=== PATIENT | female | born 1980 | race Caucasian/White ===

== ENCOUNTER 2017-11-07 13:21 | Inpatient (IN) | payer MEDICAID ==
[2017-11-07 14:25] LABS: WHITE BLOOD COUNT 8.6 10^3/ul (4.8-10.8)
[2017-11-07 14:25] LABS: ABNORMAL IP MESSAGE 1; HEMATOCRIT 22.2 % (37.0-47.0); MEAN CORPUSCULAR HEMOGLOBIN 16.9 pg (29.0-33.0); MEAN CORPUSCULAR HGB CONC 27.5 g/dl (32.0-37.0); MEAN CORPUSCULAR VOLUME 61.7 fl (82.0-101.0); PLATELET COUNT 367 10^3/UL (140-415); RED CELL DISTRIBUTION WIDTH 20.1 % (11.5-14.5)
[2017-11-07 14:33] LABS: HEMOGLOBIN 6.1 g/dl (12.0-16.0); POSITIVE DIFF @See below
[2017-11-07 14:34] LABS: ADD MAN DIFF? YES
[2017-11-07 14:41] LABS: INR 1.17; PROTIME 15.1 Sec (11.9-14.9); PT RATIO 1.2
[2017-11-07] MEDS: SOD CHLORIDE 0.9% 250 ML IV (14:41)
[2017-11-07 14:42] LABS: ANION GAP 18 (8-16); BLOOD UREA NITROGEN 10 mg/dl (7-20); CALCIUM 9.8 mg/dl (8.4-10.2); CARBON DIOXIDE 26 mmol/L (21-31); CHLORIDE 102 mmol/L (97-110); CREATININE 0.47 mg/dl (0.44-1.00); GLUCOSE 100 mg/dl (70-220); PARTIAL THROMBOPLASTIN TIME 26.9 Sec (25.0-35.0); SODIUM 142 mmol/L (135-144)
[2017-11-07] MEDS ORDERED: ONDANSETRON 4 MG INJ IV ×2 (15:00→15:30)
[2017-11-07] MEDS ORDERED: ACETAMINOPHEN 325 MG TAB PO (15:00)
[2017-11-07] MEDS ORDERED: HYDROCODONE/APAP (5/325) TAB PO (15:30)
[2017-11-07] MEDS ORDERED: morphine 2 MG INJ IV (15:30)
[2017-11-07] MEDS ORDERED: ONDANSETRON 4 MG TAB PO (15:30)
[2017-11-07] MEDS ORDERED: NACL 0.9% 3 ML SYG IV (15:30)
[2017-11-07] MEDS ORDERED: OXYCODONE/ACETAMINOPHEN (5/325) TAB PO (15:30)
[2017-11-07 16:22] LABS: ANISOCYTOSIS 2+ (0-0); BAND NEUTROPHILS % (M) 1 % (0-4); BASOPHILS % (M) 1 % (0-2); EOSINOPHILS % (M) 1 % (0-7); GIANT THROMBO% (M) 17 % (0-0); HYPOCHROMASIA 3+ (0-0); LYMPHOCYTES #M 2.9 10^3/ul (0.8-2.9); LYMPHOCYTES % (M) 34 % (15-51); MICROCYTOSIS 2+ (0-0); MONOCYTE #M 0.2 10^3/ul (0.3-0.9); MONOCYTES % (M) 3 % (0-11); PLASMAC%(M) 1 % (0); PLATELET ESTIMATE NORMAL; POIKILOCYTOSIS 1+ (0-0); POLYCHROMASIA 3+ (0-0); SEG NEUT #M 5.1 10^3/ul (1.6-7.5); SEGMENTED NEUTROPHILS (M) % 59 % (39-77); SMUDGE%M 3 % (0-0)
[2017-11-07 16:35] LABS: RETICULOCYTE COUNT # 0.038 X10^6 (0.020-0.110); RETICULOCYTE COUNT % 1.1 % (0.5-1.5)
[2017-11-07 16:35] LABS: RETICULOCYTE RBC 3.57
[2017-11-07 16:40] LABS: IRON 24 ug/dl (35-150)
[2017-11-07 16:49] LABS: % IRON SATURATION 5 % SAT (22-52); TOTAL IRON BINDING CAPACITY 462 ug/dl (241-421)
[2017-11-07 17:18] LABS: THYROID STIMULATING HORMONE 0.599 MIU/L (0.465-4.680)
[2017-11-07 20:06] LABS: ALANINE AMINOTRANSFERASE 28 IU/L (13-69); ALBUMIN 4.9 g/dl (3.3-4.9); ALKALINE PHOSPHATASE 82 IU/L (42-121); ASPARTATE AMINO TRANSFERASE 27 IU/L (15-46); LACTATE DEHYDROGENASE 491 IU/L (313-618); TOTAL PROTEIN 9.1 g/dl (6.1-8.1)
[2017-11-07] MEDS: FERROUS SULFATE (EC) 325 MG TAB PO (20:17)
[2017-11-07 20:32] LABS: IMMEDIATE SPIN CROSSMATCH 1 2
[2017-11-07 20:42] LABS: FERRITIN 2.8 ng/ml (6.2-137.0)
[2017-11-07 21:12] LABS: FOLATE 13.8 ng/ml (2.8-20.0)
[2017-11-08 06:10] LABS: ADD MAN DIFF? NO
[2017-11-08 06:17] LABS: WHITE BLOOD COUNT 6.5 10^3/ul (4.8-10.8)
[2017-11-08 06:17] LABS: ABNORMAL IP MESSAGE 1; BASOPHIL # 0.1 10^3/ul (0.0-0.1); BASOPHILS % 1.1 % (0.0-2.0); EOSINOPHILS # 0.2 10^3/ul (0.0-0.5); EOSINOPHILS % 2.5 % (0.0-7.0); HEMOGLOBIN 8.5 g/dl (12.0-16.0); LYMPHOCYTES # 2.6 10^3/ul (0.8-2.9); LYMPHOCYTES % 40.6 % (15.0-51.0); MEAN CORPUSCULAR HEMOGLOBIN 20.5 pg (29.0-33.0); MEAN CORPUSCULAR HGB CONC 30.4 g/dl (32.0-37.0); MEAN CORPUSCULAR VOLUME 67.6 fl (82.0-101.0); MONOCYTE # 0.6 10^3/ul (0.3-0.9); MONOCYTES % 9.1 % (0.0-11.0); NEUTROPHILS % 46.5 % (39.0-77.0); PLATELET COUNT 296 10^3/UL (140-415); RED BLOOD COUNT 4.14 10^6/ul (4.20-5.40); RED CELL DISTRIBUTION WIDTH 26.2 % (11.5-14.5)
[2017-11-08 06:18] LABS: POSITIVE DIFF @See below
[2017-11-08] MEDS: FERROUS SULFATE (EC) 325 MG TAB PO ×3 (08:44→20:33)
[2017-11-08] MEDS: ACETAMINOPHEN 325 MG TAB PO (08:54)
[2017-11-08] MEDS: SOD FERRIC GLUC COMPLX 125 MG in SOD CHLORIDE 0.9% 100 ML IVPB (18:01)
[2017-11-09] MEDS: SODIUM CHLORIDE 0.9% 1L BAG IUPC
[2017-11-09 04:12] LABS: OCCULT BLOOD STOOL NEGATIVE (NEGATIVE)
[2017-11-09] MEDS: FERROUS SULFATE (EC) 325 MG TAB PO ×3 (08:57→21:47)
[2017-11-09 14:38] LABS: HAPTOGLOBIN 157 mg/dL (43-212)
[2017-11-09] MEDS ORDERED: MIDAZOLAM 1 MG/ML 2 ML INJ (15:08)
[2017-11-09] MEDS ORDERED: FENTAnyl 50 MCG/ML VIAL (15:08)
[2017-11-09] MEDS ORDERED: CEFAZOLIN 1 GM INJ (15:47)
[2017-11-09] MEDS ORDERED: PROPOFOL 20 ML (15:47)
[2017-11-09] MEDS ORDERED: LIDOCAINE 2% (SDV) 5 ML INJ (15:47)
[2017-11-09] MEDS ORDERED: ONDANSETRON 4 MG INJ (15:48)
[2017-11-09] MEDS ORDERED: FENTAnyl 50 MCG/ML VIAL IV (16:30)
[2017-11-09] MEDS ORDERED: DIPHENHYDRAMINE 50 MG INJ IV (16:30)
[2017-11-09] MEDS ORDERED: HYDROmorphONE (0.2 MG/ML) 10ML SYG IV ×2 (16:30)
[2017-11-09] MEDS ORDERED: ONDANSETRON 4 MG INJ IV (16:30)
[2017-11-09] MEDS ORDERED: MEPERIDINE 25 MG INJ IV (16:30)
[2017-11-09] MEDS: SOD FERRIC GLUC COMPLX 125 MG in SOD CHLORIDE 0.9% 100 ML IVPB (17:10)
[2017-11-10 06:32] LABS: ADD MAN DIFF? NO
[2017-11-10 06:46] LABS: ABNORMAL IP MESSAGE 1; BASOPHIL # 0.1 10^3/ul (0.0-0.1); BASOPHILS % 0.9 % (0.0-2.0); EOSINOPHILS # 0.3 10^3/ul (0.0-0.5); EOSINOPHILS % 3.6 % (0.0-7.0); HEMATOCRIT 28.9 % (37.0-47.0); HEMOGLOBIN 8.5 g/dl (12.0-16.0); LYMPHOCYTES % 31.6 % (15.0-51.0); MEAN CORPUSCULAR HEMOGLOBIN 20.3 pg (29.0-33.0); MEAN CORPUSCULAR HGB CONC 29.4 g/dl (32.0-37.0); MEAN CORPUSCULAR VOLUME 69.1 fl (82.0-101.0); MONOCYTE # 0.8 10^3/ul (0.3-0.9); MONOCYTES % 8.3 % (0.0-11.0); NEUTROPHIL # 5.2 10^3/ul (1.6-7.5); NEUTROPHILS % 55.4 % (39.0-77.0); PLATELET COUNT 318 10^3/UL (140-415); RED BLOOD COUNT 4.18 10^6/ul (4.20-5.40); RED CELL DISTRIBUTION WIDTH 27.8 % (11.5-14.5)
[2017-11-10 06:46] LABS: WHITE BLOOD COUNT 9.4 10^3/ul (4.8-10.8)
[2017-11-10 06:49] LABS: POSITIVE DIFF @See below
[2017-11-10] MEDS: FERROUS SULFATE (EC) 325 MG TAB PO ×3 (08:46→20:19)
[2017-11-10] MEDS: SOD FERRIC GLUC COMPLX 125 MG in SOD CHLORIDE 0.9% 100 ML IVPB (17:18)
== END 2017-11-10 22:35 | disposition home or self-care (01) | DRG 744 ==
LOC: E/R 13:21 → PP2 15:00
PROC: 30233N1 Transfusion of Nonautologous Red Blood Cells into Peripheral Vein, Percutaneous Approach (ICD-10-PCS; principal; 2017-11-09 15:10)
PROC: 0UDB8ZX Extraction of Endometrium, Via Natural or Artificial Opening Endoscopic, Diagnostic (ICD-10-PCS; 2017-11-09 15:10)
PROC: 0UB98ZX Excision of Uterus, Via Natural or Artificial Opening Endoscopic, Diagnostic (ICD-10-PCS; 2017-11-09 15:10)
DX: N84.0 Polyp of corpus uteri (principal); D62 Acute posthemorrhagic anemia; N93.8 Other specified abnormal uterine and vaginal bleeding; R63.4 Abnormal weight loss; Z68.21 Body mass index [BMI] 21.0-21.9, adult; R93.8 Abnormal findings on diagnostic imaging of other specified body structures
CPT/HCPCS: 36415; 36430; 76830; 76856; 80048; 80076; 82270; 82607; 82728; 82746; 83010; 83540; 83615; 84443; 85025; 85045; 85610; 85730; 86644; 86850; 86900; 86901; 86920; 88305; 99291-25

== ENCOUNTER 2018-01-19 17:32 | Emergency (ER) | payer MEDICAID ==
[2018-01-19 19:02] LABS: ADD MAN DIFF? NO
[2018-01-19 19:06] LABS: ABNORMAL IP MESSAGE 1; BASOPHIL # 0.1 10^3/ul (0.0-0.1); EOSINOPHILS # 0.7 10^3/ul (0.0-0.5); HEMOGLOBIN 12.8 g/dl (12.0-16.0); LYMPHOCYTES # 3.4 10^3/ul (0.8-2.9); LYMPHOCYTES % 35.8 % (15.0-51.0); MEAN CORPUSCULAR HGB CONC 32.1 g/dl (32.0-37.0); MONOCYTE # 0.7 10^3/ul (0.3-0.9); MONOCYTES % 7.2 % (0.0-11.0); NEUTROPHIL # 4.6 10^3/ul (1.6-7.5); NEUTROPHILS % 48.8 % (39.0-77.0); PLATELET COUNT 198 10^3/UL (140-415); RED BLOOD COUNT 4.24 10^6/ul (4.20-5.40)
[2018-01-19 19:06] LABS: WHITE BLOOD COUNT 9.4 10^3/ul (4.8-10.8)
[2018-01-19 19:07] LABS: HEMATOCRIT 39.9 % (37.0-47.0); MEAN CORPUSCULAR VOLUME 94.1 fl (82.0-101.0)
[2018-01-19 19:08] LABS: MEAN CORPUSCULAR HEMOGLOBIN 30.2 pg (29.0-33.0); POSITIVE DIFF @See below
[2018-01-19 19:20] LABS: ADD UMIC YES; UR ASCORBIC ACID NEGATIVE (NEGATIVE); UR BACTERIA FEW /HPF (NONE SEEN); UR BILIRUBIN (Dip) NEGATIVE (NEGATIVE); UR BLOOD (Dip) NEGATIVE (NEGATIVE); UR CLARITY SLIGHTLY CLOUDY (CLEAR); UR COLOR YELLOW (YELLOW); UR GLUCOSE (Dip) NEGATIVE (NEGATIVE); UR KETONES (Dip) NEGATIVE (NEGATIVE); UR LEUKOCYTE ESTERASE (Dip) 3+ Leu/ul (NEGATIVE); UR NITRITE (Dip) NEGATIVE (NEGATIVE); UR RBC 1 /HPF (0-5); UR SPECIFIC GRAVITY (Dip) 1.018 (1.003-1.030); UR SQUAMOUS EPITHELIAL CELL FEW /HPF (FEW); UR TOTAL PROTEIN (Dip) NEGATIVE (NEGATIVE); UR UROBILINOGEN (Dip) NEGATIVE (NEGATIVE); UR WBC 2 /HPF (0-5)
[2018-01-19 19:42] LABS: ALANINE AMINOTRANSFERASE 17 IU/L (13-69); ALBUMIN 4.4 g/dl (3.3-4.9); ALBUMIN/GLOBULIN RATIO 0.97; ALKALINE PHOSPHATASE 102 IU/L (42-121); ANION GAP 16 (8-16); ASPARTATE AMINO TRANSFERASE 21 IU/L (15-46); BILIRUBIN,INDIRECT 0.3 mg/dl (0-1.1); BILIRUBIN,TOTAL 0.3 mg/dl (0.2-1.3); BLOOD UREA NITROGEN 14 mg/dl (7-20); CALCIUM 9.6 mg/dl (8.4-10.2); CARBON DIOXIDE 26 mmol/L (21-31); CHLORIDE 104 mmol/L (97-110); CREATININE 0.61 mg/dl (0.44-1.00); GLUCOSE 101 mg/dl (70-220); POTASSIUM 4.3 mmol/L (3.5-5.1); SODIUM 142 mmol/L (135-144); TOTAL PROTEIN 8.9 g/dl (6.1-8.1)
== END 2018-01-19 20:14 | disposition home or self-care (01) ==
LOC: FTE 17:32
DX: R51 Headache (principal); N30.00 Acute cystitis without hematuria
CPT/HCPCS: 70450; 80053; 81001; 81025; 85025; 99284-25

== ENCOUNTER 2018-11-21 17:37 | Emergency (ER) | payer OTHER, MEDICAID ==
[2018-11-21 19:39] LABS: ADD MAN DIFF? NO
[2018-11-21 19:44] LABS: WHITE BLOOD COUNT 12.7 10^3/ul (4.8-10.8)
[2018-11-21 19:44] LABS: ABNORMAL IP MESSAGE 1; BASOPHIL # 0.1 10^3/ul (0.0-0.1); BASOPHILS % 0.6 % (0.0-2.0); EOSINOPHILS # 0.3 10^3/ul (0.0-0.5); EOSINOPHILS % 2.5 % (0.0-7.0); HEMATOCRIT 32.5 % (37.0-47.0); HEMOGLOBIN 10.3 g/dl (12.0-16.0); LYMPHOCYTES # 3.6 10^3/ul (0.8-2.9); LYMPHOCYTES % 28.5 % (15.0-51.0); MEAN CORPUSCULAR HEMOGLOBIN 26.8 pg (29.0-33.0); MEAN CORPUSCULAR HGB CONC 31.7 g/dl (32.0-37.0); MEAN CORPUSCULAR VOLUME 84.4 fl (82.0-101.0); MEAN PLATELET VOLUME 13.8 fl (7.4-10.4); MONOCYTE # 0.9 10^3/ul (0.3-0.9); NEUTROPHIL # 7.7 10^3/ul (1.6-7.5); NEUTROPHILS % 61.1 % (39.0-77.0); PLATELET COUNT 222 10^3/UL (140-415); RED BLOOD COUNT 3.85 10^6/ul (4.20-5.40)
[2018-11-21 19:48] LABS: ADD UMIC YES; UR ASCORBIC ACID NEGATIVE (NEGATIVE); UR BILIRUBIN (Dip) NEGATIVE (NEGATIVE); UR BLOOD (Dip) NEGATIVE (NEGATIVE); UR CLARITY SLIGHTLY CLOUDY (CLEAR); UR COLOR YELLOW (YELLOW); UR GLUCOSE (Dip) NEGATIVE (NEGATIVE); UR KETONES (Dip) TRACE mg/dL (NEGATIVE); UR LEUKOCYTE ESTERASE (Dip) 1+ Leu/ul (NEGATIVE); UR MUCUS FEW /HPF (NONE SEEN); UR NITRITE (Dip) NEGATIVE (NEGATIVE); UR RBC 1 /HPF (0-5); UR SPECIFIC GRAVITY (Dip) 1.026 (1.003-1.030); UR SQUAMOUS EPITHELIAL CELL FEW /HPF (FEW); UR TOTAL PROTEIN (Dip) NEGATIVE (NEGATIVE); UR UROBILINOGEN (Dip) NEGATIVE (NEGATIVE); UR WBC 1 /HPF (0-5)
[2018-11-21] MEDS: ONDANSETRON 4 MG INJ IV (19:50)
[2018-11-21] MEDS: SOD CHLORIDE 0.9% 1,000 ML IV (19:51)
[2018-11-21 20:24] LABS: ALANINE AMINOTRANSFERASE 13 IU/L (13-69); ALBUMIN 4.3 g/dl (3.3-4.9); ALBUMIN/GLOBULIN RATIO 1.04; ALKALINE PHOSPHATASE 104 IU/L (42-121); ANION GAP 10 (5-13); ASPARTATE AMINO TRANSFERASE 26 IU/L (15-46); BILIRUBIN,INDIRECT 0.3 mg/dl (0-1.1); BILIRUBIN,TOTAL 0.3 mg/dl (0.2-1.3); BLOOD UREA NITROGEN 13 mg/dl (7-20); CALCIUM 9.4 mg/dl (8.4-10.2); CARBON DIOXIDE 26 mmol/L (21-31); CHLORIDE 102 mmol/L (97-110); CREATININE 0.47 mg/dl (0.44-1.00); Estimated GFR > 60 mL/min (>60); GLUCOSE 95 mg/dl (70-220); LIPASE 148 U/L (23-300); POTASSIUM 3.7 mmol/L (3.5-5.1); SODIUM 138 mmol/L (135-144); TOTAL PROTEIN 8.4 g/dl (6.1-8.1)
[2018-11-21 20:30] LABS: BASOPHIL #M 0.1 10^3/ul (0.0-0.0); BASOPHILS % (M) 1 % (0-2); EOSINOPHILS % (M) 1 % (0-7); GIANT THROMBO% (M) 9 % (0-0); LYMPHOCYTES #M 3.5 10^3/ul (0.8-2.9); LYMPHOCYTES % (M) 28 % (15-51); MONOCYTE #M 0.3 10^3/ul (0.3-0.9); MONOCYTES % (M) 3 % (0-11); PLATELET MORPHOLOGY COMMENT @See below; REACTIVE LYMPHOCYTES #M 0.1 10^3/ul (0.0-0.0); REACTIVE LYMPHOCYTES% (M) 1 % (0-0); SEGMENTED NEUTROPHILS (M) % 66 % (39-77); SMUDGE%M 19 % (0-0)
[2018-11-21] MEDS: CEFTRIAXONE 1 GM/50 ML (PMX) 50 ML IVPB (21:43)
== END 2018-11-21 22:37 | disposition home or self-care (01) ==
LOC: E/R 17:37
DX: D64.9 Anemia, unspecified (principal); N39.0 Urinary tract infection, site not specified
CPT/HCPCS: 36415; 80053; 81001; 81025; 83690; 85025; 86850; 86870; 86900; 86901; 86902; 93005; 96374; 96375; 99284-25

== ENCOUNTER 2018-12-12 08:00 | Emergency (ER) | payer OTHER ==
[2018-12-12 08:45] LABS: ADD UMIC YES; UR ASCORBIC ACID NEGATIVE (NEGATIVE); UR BACTERIA MODERATE /HPF (NONE SEEN); UR BILIRUBIN (Dip) NEGATIVE (NEGATIVE); UR BLOOD (Dip) 3+ mg/dL (NEGATIVE); UR CLARITY CLOUDY (CLEAR); UR COLOR STRAW (YELLOW); UR GLUCOSE (Dip) NEGATIVE (NEGATIVE); UR KETONES (Dip) NEGATIVE (NEGATIVE); UR LEUKOCYTE ESTERASE (Dip) 3+ Leu/ul (NEGATIVE); UR NITRITE (Dip) NEGATIVE (NEGATIVE); UR RBC > 182 /HPF (0-5); UR SPECIFIC GRAVITY (Dip) 1.006 (1.003-1.030); UR TOTAL PROTEIN (Dip) 1+ mg/dl (NEGATIVE); UR UROBILINOGEN (Dip) NEGATIVE (NEGATIVE); UR WBC > 182 /HPF (0-5)
== END 2018-12-12 09:35 | disposition home or self-care (01) ==
LOC: FTE 08:00
DX: N39.0 Urinary tract infection, site not specified (principal)
CPT/HCPCS: 81001; 87086; 87591; 99283